=== PATIENT | female | born 1950 | race Caucasian/White ===

== ENCOUNTER 2019-08-20 13:47 | Observation (INO) | payer OTHER ==
[~2019-08-20] VITALS: Ht 167.6 cm; Wt 106.2 kg
--- NOTE | 2019-08-20 09:05 | NUR ---
Report given to night manager. Respiration even and unlabored without SOB. Patient lying in bed with eyes open. Family members at bedside. Call light in reach.
[~2019-08-20 13:47] MED LIST: CYCLOBENZAPRINE10 MG PO; CYMBALTA20 MG PO; MICARDIS40 MG PO; PANTOPRAZOLE SO40 MG PO; PRILOSEC OTC20 MG PO; Z.0.ACIPHEX20 MG PO; Z.0.ASPIR 8181 MG PO; Z.0.LIBRAX CAPSULE1 PO; Z.0.LIPITOR40 MG PO; Z.0.METOPROLOL SUCC2 PO; Z.0.MICARDIS80 MG PO; Z.2.METFORMIN HCL500 PO
[2019-08-20] MEDS ORDERED: MORPHINE SULFATE INJ 4 MG/ML INJ 1ML IV ONE (14:05)
[2019-08-20 14:30] LABS: BASOPHILS # (AUTO) 0.1 (0.0-0.1); BASOPHILS % 0.8 % (0.0-1.0); EOSINOPHILS # (AUTO) 0.2 (0.0-0.4); HEMATOCRIT 44.9 % (34.2-44.1); HEMOGLOBIN 14.3 g/dL (12.0-16.0); LYMPHOCYTES # (AUTO) 3.1 (1.0-3.2); LYMPHOCYTES % 34.7 % (18.0-39.1); MEAN CORPUSCULAR HEMOGLOBIN 29.6 pg (28-32); MEAN CORPUSCULAR HGB CONC 31.8 g/dL (31-35); MONOCYTES # (AUTO) 0.6 (0.2-0.8); MONOCYTES % 6.4 % (4.4-11.3); NEUTROPHILS # (AUTO) 4.9 (2.1-6.9); NEUTROPHILS % 55.8 % (38.7-80.0); PLATELET COUNT 241 x10e3/uL (140-360); RED BLOOD COUNT 4.83 x10e6/uL (3.6-5.1); RED CELL DISTRIBUTION WIDTH 12.4 % (11.7-14.4)
[2019-08-20 14:50] LABS: ALANINE AMINOTRANSFERASE 37 IU/L (0-55); ALBUMIN 3.5 g/dL (3.5-5.0); ANION GAP 14.3 mmol/L (8-16); BLOOD UREA NITROGEN 11 mg/dL (7-26); BUN/CREATININE RATIO 13 (6-25); CALCIUM 9.4 mg/dL (8.4-10.2); CARBON DIOXIDE 28 mmol/L (22-29); CHLORIDE 96 mmol/L (98-107); CREATININE, SERUM 0.88 mg/dL (0.57-1.11); EST GLOMERULAR FILTRATION RATE > 60 ML/MIN (60-); GLUCOSE 211 mg/dL (74-118); POTASSIUM 4.3 mmol/L (3.5-5.1); SODIUM 134 mmol/L (136-145)
[2019-08-20 14:51] LABS: ALKALINE PHOSPHATASE 124 IU/L (40-150); CREATINE KINASE 40 IU/L (29-168)
[2019-08-20] MEDS ORDERED: ONDANSETRON HCL INJ 2MG/ML 2ML 2 MG/ML VIAL IV PRN (15:15)
[2019-08-20] MEDS ORDERED: MORPHINE SULFATE 2 MG/ML SYR 1ML IV PRN (15:15)
--- NOTE | 2019-08-20 15:29 | Diagnostic Imaging Report ---
EXAMINATION: CHEST SINGLE (PORTABLE) INDICATION: Chest pain COMPARISON: Chest radiograph of 08/30/2018 FINDINGS: LINES/TUBES:EKG leads overlie the chest. LUNGS:The lungs are moderately inflated. Mild bibasilar patchy opacities left greater than right. PLEURA:No pleural effusion or pneumothorax. MEDIASTINUM:The cardiomediastinal silhouette appears normal in size and shape. BONES/SOFT TISSUES:No acute osseous injury. ABDOMEN:No free air under the diaphragm. IMPRESSION: Left greater than right bibasilar patchy opacities, more likely subsegmental atelectasis than superimposed aspiration or pneumonia. Signed by: Janneth Allred MD on 08/20/2019 3:26 PM
[2019-08-20] MEDS ORDERED: MORPHINE SULFATE INJ 4 MG/ML INJ 1ML IV PRN (15:30)
[2019-08-20] MEDS ORDERED: GABAPENTIN300 MG PO (15:56)
[2019-08-20 16:15] VITALS: BP 146/89
--- NOTE | 2019-08-20 16:15 | NUR ---
Received patient from ER. Lying in bed with eyes open. Respiration even and unlabored without SOB. Denies chest pain or chest pressure at this time. Call light in reach. Patient is on telemetry with reading of Sinus Bradycardia. No acute distress noted at this time. Call light in reach.
[2019-08-20 16:26] VITALS: BP 146/89
[2019-08-20 17:29] VITALS: BP 146/89
[2019-08-20] MEDS ORDERED: GABAPENTIN 300 MG CAP PO PRN (17:30)
[2019-08-20] MEDS ORDERED: DEXTROSE 50% SYRINGE 50 ML IV PRN (17:45)
[2019-08-20 19:32] VITALS: BP 146/89
[2019-08-20 20:00] VITALS: BP 120/57
[2019-08-20] MEDS: INSULIN REGULAR, HUMAN 100 UNIT/1 ML 3ML VIAL SQ SCH (20:06)
[2019-08-20] MEDS ORDERED: ATORVASTATIN 40 MG TAB PO SCH ×2 (21:00→23:15)
[2019-08-20 22:23] VITALS: BP 120/57
[2019-08-21] VITALS (7 sets, daily range): BP systolic 114–153; BP diastolic 56–70
[2019-08-21 00:37] LABS: CREATINE KINASE 37 IU/L (29-168)
[2019-08-21 05:53] LABS: BASOPHILS # (AUTO) 0.1 (0.0-0.1); BASOPHILS % 0.7 % (0.0-1.0); EOSINOPHILS # (AUTO) 0.2 (0.0-0.4); EOSINOPHILS % 2.4 % (0.0-6.0); HEMATOCRIT 41.5 % (34.2-44.1); HEMOGLOBIN 13.3 g/dL (12.0-16.0); LYMPHOCYTES # (AUTO) 3.2 (1.0-3.2); LYMPHOCYTES % 33.9 % (18.0-39.1); MEAN CORPUSCULAR HEMOGLOBIN 29.8 pg (28-32); MONOCYTES # (AUTO) 0.6 (0.2-0.8); MONOCYTES % 6.1 % (4.4-11.3); NEUTROPHILS # (AUTO) 5.3 (2.1-6.9); NEUTROPHILS % 56.7 % (38.7-80.0); PLATELET COUNT 222 x10e3/uL (140-360); RED BLOOD COUNT 4.46 x10e6/uL (3.6-5.1); RED CELL DISTRIBUTION WIDTH 12.5 % (11.7-14.4)
[2019-08-21 06:13] LABS: CREATINE KINASE 37 IU/L (29-168)
[2019-08-21 06:41] LABS: ANION GAP 14.2 mmol/L (8-16); BLOOD UREA NITROGEN 10 mg/dL (7-26); BUN/CREATININE RATIO 13 (6-25); CARBON DIOXIDE 27 mmol/L (22-29); CHLORIDE 99 mmol/L (98-107); CHOL/HDL RATIO 5.4 (3.0-3.6); CHOLESTEROL 178 MD/DL (0-199); CREATININE, SERUM 0.78 mg/dL (0.57-1.11); EST GLOMERULAR FILTRATION RATE > 60 ML/MIN (60-); GLUCOSE 131 mg/dL (74-118); HDL CHOLESTEROL 33 MG/DL (40-60); LDL CHOLESTEROL 112 MG/DL (60-130); POTASSIUM 4.2 mmol/L (3.5-5.1); SODIUM 136 mmol/L (136-145); TRIGLYCERIDES 167 MG/DL (0-149)
[2019-08-21 07:00] LABS: THYROID STIMULATING HORMONE 1.615 uIU/mL (0.350-4.940)
[2019-08-21] MEDS: INSULIN REGULAR, HUMAN 100 UNIT/1 ML 3ML VIAL SQ SCH (07:30)
[2019-08-21] MEDS ORDERED: PANTOPRAZOLE SOD 40 MG TABEC PO SCH ×2 (07:30)
[2019-08-21] MEDS ORDERED: ONDANSETRON HCL 4 MG ORAL DISINTEGRATING TAB PO PRN (08:30)
[2019-08-21] MEDS ORDERED: METOPROLOL SUCCINATE 25 MG TAB XL PO SCH (09:00)
[2019-08-21] MEDS ORDERED: TELMISARTAN 40 MG TAB PO SCH (09:00)
[2019-08-21] MEDS ORDERED: DULOXETINE HCL 20 MG DELAYED RELEASE PO SCH (09:00)
[2019-08-21] MEDS ORDERED: ASPIRIN 325 MG TAB PO SCH (09:00)
--- NOTE | 2019-08-21 09:17 | NUR ---
Obs review done
[2019-08-21] MEDS ORDERED: REGADENOSON 0.4 MG/5 ML SYR IV ONE (11:19)
--- NOTE | 2019-08-21 13:29 | Consultation ---
DATE OF CONSULTATION: Cardiology Consultation CHIEF COMPLAINT: Chest pain. CODED ALLERGIES: Carisoprodol, codeine, penicillin, cephalexin, monohydrate, warfarin, sodium, and hydrocodone. HISTORY OF PRESENT ILLNESS: Estela Tam is a 69-year-old female with primary history of hypertension, hyperlipidemia, diabetes; admitted complaining of chest pain, she describes as grabbing and heavy, and radiating to her left back area with 10/10 in intensity. The patient denies any other accompanying symptoms. No dizziness or dyspnea. The patient denies any aggravating factors as well. The patient reports resolution of chest pain after she took a total of 6 baby aspirin. MEDICATIONS: Atorvastatin 40 mg, metoprolol 25 b.i.d., aspirin 325 mg daily, telmisartan 80 mg daily, pantoprazole, gabapentin, duloxetine. PRIMARY HISTORY: Hypertension, hyperlipidemia, diabetes. PAST SURGICAL HISTORY: Lower back surgery. FAMILY HISTORY: Dad is , had a heart disease. Brother #1 has cardiomyopathy, brother #2 of an [place]. Mom of uterine cancer. REVIEW OF SYSTEMS: CONSTITUTIONAL: Energy level generally good. HEENT: No headaches. Negative hearing loss. RESPIRATORY: No history of pleurisy, cough, wheezing, asthma, hemoptysis, or pulmonary emboli. CARDIA: See HPI. VASCULAR: No history of claudication, gangrene, DVT, or aneurysm. GI: Negative melena or hematemesis. : Negative hematuria. NEUROMUSCULAR: Negative. History of osteoarthritis. PERSONAL HISTORY: The patient is nonsmoker and no alcohol use. PHYSICAL EXAMINATION: VITAL SIGNS: Blood pressure 114/56, pulse is 65, temperature is 96.7, respiration is 18, SpO2 is 95% on room air. GENERAL: Well-developed, slightly obese, woman. She denies any chest pain right now. HEENT: Normocephalic. Sclerae are nonicteric. NECK: Supple. Negative JVD. Range of motion is normal. EXTREMITIES: No edema and pulses are palpable. LUNGS: Clear to auscultation bilaterally. CARDIOVASCULAR: S1 and S2, regular. No murmur. No bruits or rubs. ABDOMEN: Soft, nondistended, nontender. Bowel sounds are present. NEUROLOGICAL: Alert, awake, and oriented x4. LABORATORY DATA: Sodium is 136, potassium is 4.2, chloride is 99, CO2 of 27, BUN 10, creatinine 0.78, glucose is 131. WBC is 9.4, hemoglobin is 13.3, hematocrit 41.5, and platelets 222. Total bilirubin 0.4, AST is 47, ALKP is 124, ALT 37. IMPRESSION AND PLAN: Atypical chest pain. Primary history of hypertension, diabetes, hyperlipidemia. Cardiac enzymes negative. EKG sinus bradycardia with heart rates on the 50s. Continue taking metoprolol, telmisartan, atorvastatin, aspirin, and then we will do a nuclear stress test today. If nuclear stress test is negative, the patient is okay to be discharge, however, she needs to follow up with Cardiology with Dr. Kelvin Sanchez, at his [place] office. Thank you for your consultation. We will continue to follow. Dictated by Yary Garcia NP MD MYESHA Cottrell/AMANDA /[id number]
[2019-08-21 14:09] LABS: CREATINE KINASE 35 IU/L (29-168)
--- NOTE | 2019-08-21 16:45 | Operative Report ---
DATE OF PROCEDURE: SURGEON: Kelvin Sanchez MD PROCEDURE: Lexiscan nuclear stress test. INDICATION: Chest pain. COMPLICATIONS: None. TECHNIQUE: The patient was given 10 mCi of Myoview. Resting images were obtained in the horizontal long axis, vertical long axis, and short axis. The patient was then hooked up to the EKG machine. Lexiscan was infused over 30 seconds. During Lexiscan infusion, the patient had no chest pain and no symptoms. No EKG changes. The patient was given 33 mCi of Myoview immediately after the completion of the Lexiscan infusion. Stress images were obtained 30 minutes after completion of Lexiscan infusion in the horizontal long axis, vertical long axis, and short axis. Results are as follows: 1. Resting EKG demonstrated normal sinus rhythm with nonspecific ST and T-wave changes. 2. There were no EKG changes and no symptoms during Lexiscan infusion. 3. There was normal perfusion to all segments of the myocardium in both stress and rest. 4. There was normal left ventricular size and function with an ejection fraction of 61%. CONCLUSION: Normal Lexiscan nuclear stress test with no evidence of ischemia. Kelvin Sanchez MD [facility]/MOD[facility] /[id number]
--- NOTE | 2019-08-28 21:40 | History and Physical ---
CHIEF COMPLAINT: Chest pain. HISTORY OF PRESENT ILLNESS: This is a 69-year-old female with multiple comorbidities. Of note, came into the emergency room with complaints of underlying chest pain, described more as grabbing and heaving in nature on the left side. It is 10/10 in intensity. Associated nausea vomiting was present. She states that she took some aspirin at home with some resolution of her chest pain. She has never experienced any kind of chest pain like this before. The patient was seen and evaluated at bedside on the medical floor. She is currently doing well. No other issues at this time. Cardiology has been consulted. REVIEW OF SYSTEMS: Pertinent positives: Chest pain, nausea, vomiting. Pertinent negatives: Denies any palpitation, dysuria, hematuria, frequency, urgency, lightheadedness, dizziness, abdominal pain, headaches, shortness of breath, cough, congestion, fever, or any other complaints. The rest of 14-point review of systems have been reviewed with the patient and are negative. ALLERGIES: SOMA, CODEINE, PENICILLINS, CEPHALEXIN, MONOHYDRATE, WARFARIN, HYDROCODONE. HOME MEDICATIONS: 1. Atorvastatin. 2. Metoprolol. 3. Aspirin. 4. Telmisartan. 5. Protonix. 6. Gabapentin. 7. Duloxetine. PAST MEDICAL HISTORY: Hypertension, hyperlipidemia, type 2 diabetes. PAST SURGICAL HISTORY: Lower back surgery. FAMILY HISTORY: Hypertension and diabetes. Dad due to heart disease. Brother by cardiomyopathy. Another brother from an [place]. Mother of uterine cancer. PHYSICAL EXAMINATION: VITAL SIGNS: Temperature 97.4, pulse 69, respiratory rate is 20, blood pressure 152/70, pulse ox 96% on room air. LABORATORY FINDINGS: White count 9.4, hemoglobin 13, hematocrit is 41.5, platelets of 222. Chemistries; sodium was 136, potassium was 4.2, chloride was 99, bicarbonate was 27, anion gap of 14, BUN was 10, creatinine is 0.78, calcium is 9. LFTs within normal range. Albumin was 3.5. LDL was 112. MICROBIOLOGY: None. IMAGING STUDIES: Chest x-ray shows some patchy bilateral opacities. Cardiac stress testing was found to be negative. HOSPITAL COURSE: A 69-year-old female, who came into the ED with complaints of chest pain. The patient was admitted on observation and Cardiology was consulted. Cardiac enzymes found to be negative. EKG showed no acute findings. Cardiac stress testing according to Cardiology when I spoke with them by phone was found to be negative. A 2D echo within normal range per Cardiology while I spoke with them. The patient did well, had no chest pain prior to being discharged home. She was cleared for discharge by Cardiology. No further workup was needed. On the day of discharge, vital signs were stable, labs reviewed and stable. The patient was seen, evaluated, and examined thoroughly on the day of discharge. No other complaints. The patient verbalized understanding and agreed to plan of care to follow up as an outpatient with the PCP in 1 week and the rest of the consulting special Cardiology in 2 weeks' time. MEDICATIONS: See med reconciliation form. DISPOSITION: Home. CONDITION: Stable. DIET: Heart healthy. In the event of any worsening symptoms, the patient was advised to come back to the ED for further evaluation. Discharge summary took greater than 35 minutes. Once again, the patient was cleared for discharge by Cardiology. MD NEENA Quinn/MODGonzalez /[id number]
== END 2019-08-21 16:18 | disposition home or self-care (01) ==
LOC: ER 13:47 → ERHOLD 15:42 → MED/SURG 16:15
PROVIDERS: ADMIT Internal Medicine; ATTEND Internal Medicine
DX: R07.89 Other chest pain (principal); I10 Essential (primary) hypertension; E78.5 Hyperlipidemia, unspecified; E11.9 Type 2 diabetes mellitus without complications; E66.9 Obesity, unspecified; Z68.37 Body mass index [BMI] 37.0-37.9, adult; Z88.1 Allergy status to other antibiotic agents; Z88.5 Allergy status to narcotic agent; Z88.0 Allergy status to penicillin; Z88.8 Allergy status to other drugs, medicaments and biological substances; Z79.84 Long term (current) use of oral hypoglycemic drugs
CPT/HCPCS: 36415; 71045; 78452; 80048; 80053; 80061; 82550 ×2; 82553 ×2; 82948 ×2; 83036; 83880; 84443; 84484 ×2; 85025 ×2; 93005; 93017; 99284; A9502; G0378 ×2; J1817; J2270; J2785

== ENCOUNTER 2021-04-13 02:40 | Emergency (ER) | payer OTHER ==
[~2021-04-13] VITALS: Ht 167.6 cm; Wt 106.1 kg
[~2021-04-13 02:40] MED LIST changes: +GABAPENTIN300 MG PO
[2021-04-13 03:37] LABS: BASOPHILS # (AUTO) 0.1 (0.0-0.1); BASOPHILS % 0.7 % (0.0-1.0); EOSINOPHILS # (AUTO) 0.4 (0.0-0.4); EOSINOPHILS % 2.4 % (0.0-6.0); LYMPHOCYTES # (AUTO) 4.1 (1.0-3.2); LYMPHOCYTES % 27.9 % (18.0-39.1); MEAN CORPUSCULAR HEMOGLOBIN 29.2 pg (28-32); MEAN CORPUSCULAR HGB CONC 31.8 g/dL (31-35); MEAN CORPUSCULAR VOLUME 91.7 fL (81-99); MONOCYTES # (AUTO) 0.9 (0.2-0.8); NEUTROPHILS # (AUTO) 9.2 (2.1-6.9); NEUTROPHILS % 62.7 % (38.7-80.0); PLATELET COUNT 236 x10e3/uL (140-360); RED CELL DISTRIBUTION WIDTH 12.6 % (11.7-14.4)
[2021-04-13 03:57] LABS: ALBUMIN 3.8 g/dL (3.5-5.0); CALCIUM 9.1 mg/dL (8.4-10.2); CREATININE, SERUM 0.92 mg/dL (0.57-1.11)
[2021-04-13 04:03] LABS: CREATINE KINASE MB 1.3 ng/mL (0-5.0)
== END 2021-04-13 05:00 | disposition home or self-care (01) ==
LOC: ER 03:07
DX: E11.65 Type 2 diabetes mellitus with hyperglycemia (principal); R07.9 Chest pain, unspecified; I10 Essential (primary) hypertension
CPT/HCPCS: 36415; 71045; 80053; 82550; 82553; 84484; 85025; 93005; 99283